=== PATIENT | female | born 1955 | race Caucasian/White ===

== ENCOUNTER 2018-04-29 14:03 | Emergency (ER) | payer OTHER ==
[2018-04-29 14:05] VITALS: BP 146/84; PULSE 107; RESP 18; TEMP 97.8; O2SAT 97
[2018-04-29] MEDS ORDERED: MELO7.5T27 PO (14:26)
[2018-04-29] MEDS ORDERED: PRIS50TA PO (14:26)
[2018-04-29] MEDS ORDERED: WELLTAB39 PO (14:26)
[2018-04-29] MEDS ORDERED: OMEP20TA93 PO (14:26)
[2018-04-29] MEDS ORDERED: PRAV10TA PO (14:26)
--- NOTE | 2018-04-29 15:02 | PD ---
HPI Chief Complaint: Pain: Acute or Chronic Time Seen by Provider: 14:27 Travel History International Travel<30 days: No Contact w/Intl Traveler<30days: No Traveled to known affect area: No History of Present Illness HPI 62-year-old female presents the ER for evaluation of left leg swelling that started yesterday. Associated with mild tenderness on the calf area, she says it is mildly warm to touch, she does not remember any bites on her leg, denies any fevers chills or night sweats, she has no history of blood clots in her legs before. No trauma, no shortness of breath or chest pain. PFSH Past Medical History Asthma: No Autoimmune Disease: No High Cholesterol: Yes COPD: No Diabetes: No GERD: Yes Genitourinary: No Hepatitis: Yes (C) Hypertension: Yes Respiratory: No Influenza Vaccination: No (NEVER) ?: Not Social History Alcohol Use: No (RECOVERED ALCOHOLIC) Tobacco Use: No Substance Use: No Allergies-Medications (Allergen,Severity, Reaction): Coded Allergies: No Known Allergies (Verified Allergy, Severe, 04/29/18) Reported Meds & Prescriptions Reported Meds & Active Scripts Active EC-Naprosyn (Naproxen) 500 Mg Tabdr 500 Mg PO BID Reported Omeprazole 20 Mg Tab 20 Mg PO DAILY Pravastatin 10 Mg Tab 10 Mg PO DAILY Meloxicam 7.5 Mg Tab 7.5 Mg PO DAILY Wellbutrin Xl 24 HR (Bupropion HCl) 300 Mg Tab 300 Mg PO DAILY Pristiq 24 HR (Desvenlafaxine ER 24 HR) 50 Mg Tab 50 Mg PO DAILY Review of Systems Except as stated in HPI: all other systems reviewed are Neg Physical Exam Narrative GENERAL: 3 no acute distress SKIN: Focused skin assessment warm/dry. HEAD: Atraumatic. Normocephalic. EYES: Pupils equal and round. No scleral icterus. No injection or drainage. ENT: No nasal bleeding or discharge. Mucous membranes pink and moist. NECK: Trachea midline. No JVD. CARDIOVASCULAR: Regular rate and rhythm. No murmur appreciated. RESPIRATORY: No accessory muscle use. Clear to auscultation. Breath sounds equal bilaterally. GASTROINTESTINAL: Abdomen soft, non-tender, nondistended. Hepatic and splenic margins not palpable. MUSCULOSKELETAL: Mild nonpitting edema of the left leg with calf tenderness, mildly warm to touch but no erythema. No obvious deformities. No clubbing. No cyanosis. No edema. NEUROLOGICAL: Awake and alert. No obvious cranial nerve deficits. Motor grossly within normal limits. Normal speech. PSYCHIATRIC: Appropriate mood and affect; insight and judgment normal. Data Data Last Documented VS Vital Signs Date Time Temp Pulse Resp B/P (MAP) Pulse Ox O2 Delivery O2 Flow Rate FiO2 04/29/18 16:10 67 18 128/84 (99) 98 04/29/18 14:05 97.8 Orders Orders Us Leg Venous Doppler (04/29/18 ) Ed Discharge Order (04/29/18 15:59) [facility] Medical Decision Making Medical Screen Exam Complete: Yes Emergency Medical Condition: Yes Differential Diagnosis DVT, psoriasis, popliteal cyst, Frye's cyst. Narrative Course 62-year-old female presented today for left leg swelling. DVT was ruled out by nor venous Doppler that showed no evidence of DVT but showed a popliteal cyst which could explain the pain and swelling. Physical exam shows that the left leg is not warm to touch and I do not believe that she has cellulitis and she may not need antibiotics meanwhile if symptoms change or not improve she will have to come to the ER for further evaluation. I gave the patient a course of NSAIDs and recommend that she follow-up with orthopedic for possible aspiration. Last 24 hours Impressions Lower Extremity Ultrasound 04/29/18 0000 Signed Impressions: CONCLUSION: 1. Negative for deep venous thrombosis 2. Fluid collections as above, 1 popliteal cyst sitting behind the knee, the s econd, elongated in mid calf as described above. Diagnosis Primary Impression: Popliteal cyst, unruptured Qualified Codes: M71.22 - Synovial cyst of popliteal space [Frye], left knee Referrals: Ronan Liu MD Additional Instructions: Follow-up with orthopedics and return to your symptoms change or not improve. Scripts Naproxen DR (EC-Naprosyn) 500 Mg Tabdr 500 MG PO BID, #20 TAB 0 Refills Prov: Ortega Antonio MD 04/29/18 Disposition: 01 DISCHARGE HOME Condition: Stable Ortega Antonio MD Apr 29, 2018 15:02
--- NOTE | 2018-04-29 15:30 | RADRPT ---
EXAM DATE: 04/29/2018 3:27 PM EDT AGE/SEX: 62 years / Female INDICATIONS: Left leg swelling. CLINICAL DATA: This is the patient's initial encounter. Patient reports that signs and symptoms have been present for 1 day and indicates a pain score of 0/10. MEDICAL/SURGICAL HISTORY: Hypercholesterolemia. Hypertension. Gastroesophageal reflux disease . Hep C. None. COMPARISON: No prior exams available for comparison. TECHNIQUE: Venous ultrasound of both lower extremities was performed from the inguinal ligament to t he proximal calf. Real-time, color Doppler and spectral tracing, compression and augmentation techni ques were used. FINDINGS: There is normal compressibility of the deep venous system from the inguinal region to the proximal ca lf. No echogenic clot is seen in the lumen of the common femoral, femoral, popliteal, and posterior tibial veins. There is a normal response of the venous system to proximal and distal augmentation an d respiration. 2.6 cm x 4.3 similar popliteal cyst. Second fluid collection in the mid calf elongat ed measuring 11 cm x 5.8 cm, probably remnants of a ruptured popliteal cyst by gastroc hemorrhage. CONCLUSION: 1. Negative for deep venous thrombosis 2. Fluid collections as above, 1 popliteal cyst sitting behind the knee, the second, elongated in mi d calf as described above. Electronically signed by: Billy Gayle MD 04/29/2018 3:29 PM EDT
[2018-04-29] MEDS ORDERED: NAPR-810 PO (16:01)
[2018-04-29 16:10] VITALS: BP 128/84
== END 2018-04-29 16:12 | disposition home or self-care (01) ==
LOC: PHED 14:03
DX: M71.22 Synovial cyst of popliteal space [Baker], left knee (principal); E78.00 Pure hypercholesterolemia, unspecified; K21.9 Gastro-esophageal reflux disease without esophagitis; I10 Essential (primary) hypertension; Z86.19 Personal history of other infectious and parasitic diseases; Z79.899 Other long term (current) drug therapy
CPT/HCPCS: 93971